=== PATIENT | female | born 1950 | race Caucasian/White ===

== ENCOUNTER 2021-04-16 19:24 | Inpatient (IN) | payer OTHER ==
[~2021-04-16] VITALS: Ht 167.6 cm; Wt 85.7 kg
[~2021-04-16 19:24] MED LIST: ASCO250T13 PO; METO25TA5 PO; MULTTAB99 PO; SIMV10TA84 PO; TEMA15CA2 PO
[2021-04-16 20:30] LABS: Basophils # (auto) 0 10 ^3/uL (0-0.2); Basophils % (auto) 0.6 % (0.0-2.0); Eosinophils # (auto) 0.3 10 ^3/uL (0-0.8); Lymphocytes # (auto) 1.3 10 ^3/uL (0.4-5.4)
[2021-04-16 20:32] LABS: Eosinophils % (auto) 5.8 % (0.0-7.0); Hematocrit 36.6 % (36.0-46.0); Hemoglobin 12.5 g/dL (12.2-16.2); Lymphocytes % (auto) 22.1 % (10.0-50.0); Mean Corpuscular Hemoglobin 35.4 pg (28.0-32.0); Mean Corpuscular Volume 104.1 fL (80.0-100.0); Monocytes # (auto) 0.6 10 ^3/uL (0-1.3); Monocytes % (auto) 9.3 % (0.0-12.0); Neutrophils # (auto) 3.7 10 ^3/uL (1.6-8.6); Neutrophils % (auto) 62.2 % (37.0-80.0); Nucleated Red Blood Cells % 0.2 %; Red Blood Cells 3.51 10^6/uL (4.0-5.20); Red Cell Distribution Width 13.8 % (11.8-14.3); White Blood Cell 5.9 10^3/uL (4.4-10.8)
[2021-04-16 20:47] LABS: Albumin 2.3 g/dL (3.4-5.0); BUN/Creatinine Ratio 13.2; Calcium 7.9 mg/dL (8.5-10.1); Magnesium 2.3 mg/dL (1.6-2.6); Potassium 4.8 mmol/L (3.5-5.1)
[2021-04-16 21:00] LABS: Bilirubin, Total 0.4 mg/dL (0.2-1.0); Total Protein 5.2 g/dL (6.4-8.2)
[2021-04-16 21:11] LABS: INR 1.07 (0.9-1.15); Partial Thromboplastin Time 30.8 sec (23.6-33.0)
[2021-04-16] MEDS ORDERED: MORPHINE SULFATE INJECTION 2 MG/ML SYRG IV ONE (22:45)
[2021-04-16] MEDS ORDERED: ONDANSETRON HCL 4 MG/2 ML VIAL IV ONE (22:45)
[2021-04-16] MEDS ORDERED: SODIUM CHLORIDE 0.9% 1,000 ML IV ONE (23:45)
[2021-04-16 23:54] LABS: Urine Bacteria FEW /hpf (None Seen); Urine Blood 3+ /uL (Negative); Urine Hyaline Cast FEW /lpf (0 - 2); Urine Mucus FEW (None Seen); Urine Specific Gravity 1.005 (1.001-1.035); Urine WBC 2 /hpf (0 - 5)
[2021-04-17] MEDS ORDERED: fentaNYL CITRATE 100 MCG/2 ML VL IV ONE (00:45)
[2021-04-17] MEDS ORDERED: ACETAMINOPHEN 325 MG TAB PO PRN (01:00)
[2021-04-17] MEDS ORDERED: NITROGLYCERIN 0.4 MG SL TAB SL PRN (01:00)
[2021-04-17] MEDS ORDERED: MORPHINE SULFATE INJECTION 2 MG/ML SYRG IV PRN (01:00)
[2021-04-17] MEDS ORDERED: cloNIDine HCL 0.1 MG TAB PO PRN (01:00)
[2021-04-17 01:48] VITALS: BP 136/79
[2021-04-17] MEDS: D5W/SOD CHLO 0.9% 1,000 ML IV SCH ×2 (03:10→14:48)
[2021-04-17] MEDS: cefTRIAXone 1GM/50ML D5W 50 ML IV SCH (04:29)
[2021-04-17 05:00] VITALS: BP 110/78
[2021-04-17] MEDS: HYDROmorphone HCL 2 MG/ML VL IV PRN ×6 (05:03→23:41)
[2021-04-17] MEDS ORDERED: ALBU108A5 INH (06:27)
[2021-04-17] MEDS ORDERED: HYDR-4798 PO (06:27)
[2021-04-17] MEDS: HYDROcodone-ACET 5/325MG TAB PO PRN ×2 (07:34→11:51)
[2021-04-17 09:00] VITALS: BP 113/54
[2021-04-17 09:48] LABS: Eosinophils # (auto) 0.1 10 ^3/uL (0-0.8); Hematocrit 32.4 % (36.0-46.0); Mean Corpuscular Hgb Conc. 34.8 g/dL (32.0-36.0); Monocytes # (auto) 0.5 10 ^3/uL (0-1.3); Nucleated Red Blood Cells % 0.2 %; Red Cell Distribution Width 13.3 % (11.8-14.3); White Blood Cell 6.1 10^3/uL (4.4-10.8)
[2021-04-17 09:49] LABS: Basophils # (auto) 0.1 10 ^3/uL (0-0.2); Basophils % (auto) 1.2 % (0.0-2.0); Eosinophils % (auto) 1.4 % (0.0-7.0); Hemoglobin 11.3 g/dL (12.2-16.2); Lymphocytes # (auto) 0.7 10 ^3/uL (0.4-5.4); Lymphocytes % (auto) 11.6 % (10.0-50.0); Mean Corpuscular Volume 103.5 fL (80.0-100.0); Monocytes % (auto) 8.6 % (0.0-12.0); Neutrophils # (auto) 4.7 10 ^3/uL (1.6-8.6); Neutrophils % (auto) 77.2 % (37.0-80.0); Red Blood Cells 3.13 10^6/uL (4.0-5.20)
[2021-04-17 09:59] LABS: Calcium 7.6 mg/dL (8.5-10.1); Potassium 4.2 mmol/L (3.5-5.1)
[2021-04-17] MEDS ORDERED: FAMOTIDINE (10MG/ML) 2ML VL IV SCH (10:00)
[2021-04-17] MEDS ORDERED: ENOXAPARIN SOD 40 MG/0.4 ML SYRINGE SC SCH (10:00)
[2021-04-17] MEDS ORDERED: METOPROLOL TARTRATE 25 MG TAB PO SCH (10:00)
[2021-04-17 10:05] LABS: BUN/Creatinine Ratio 14.6; Bilirubin, Total 0.5 mg/dL (0.2-1.0); Total Protein 4.5 g/dL (6.4-8.2)
[2021-04-17 13:00] VITALS: BP 135/80
[2021-04-17 17:00] VITALS: BP 132/86
[2021-04-17] MEDS: HYDROcodone-ACET 10/325MG TAB PO PRN ×2 (17:25→22:26)
[2021-04-17 22:00] VITALS: BP 151/86
[2021-04-17] MEDS ORDERED: ALBUTEROL SULF HFA 90MCG INH 200DOSE IN SCH (22:00)
[2021-04-17] MEDS: methylPREDNISolone SOD SUCC 40 MG/ML VL IV SCH (22:23)
[2021-04-17] MEDS: CELECOXIB 100 MG CAP PO SCH (22:24)
[2021-04-17] MEDS: MULTIPLE VITAMIN TAB PO SCH (22:24)
[2021-04-17] MEDS: ONDANSETRON HCL 4 MG/2 ML VIAL IV PRN (22:25)
[2021-04-18 05:00] VITALS: BP 137/78
[2021-04-18] MEDS: methylPREDNISolone SOD SUCC 40 MG/ML VL IV SCH (05:11)
[2021-04-18] MEDS: HYDROmorphone HCL 2 MG/ML VL IV PRN ×4 (05:13→20:35)
[2021-04-18 08:31] LABS: Basophils # (auto) 0 10 ^3/uL (0-0.2); Basophils % (auto) 0.2 % (0.0-2.0); Eosinophils # (auto) 0 10 ^3/uL (0-0.8); Hemoglobin 11.6 g/dL (12.2-16.2); Lymphocytes # (auto) 0.3 10 ^3/uL (0.4-5.4); Lymphocytes % (auto) 5.4 % (10.0-50.0); Mean Corpuscular Hgb Conc. 34.3 g/dL (32.0-36.0); Mean Corpuscular Volume 105.1 fL (80.0-100.0); Monocytes # (auto) 0.1 10 ^3/uL (0-1.3); Monocytes % (auto) 1.8 % (0.0-12.0); Neutrophils # (auto) 4.6 10 ^3/uL (1.6-8.6); Neutrophils % (auto) 92.6 % (37.0-80.0); Red Blood Cells 3.23 10^6/uL (4.0-5.20); Red Cell Distribution Width 13.6 % (11.8-14.3)
[2021-04-18 08:42] LABS: Calcium 7.9 mg/dL (8.5-10.1); Potassium 4.5 mmol/L (3.5-5.1)
[2021-04-18 08:49] LABS: BUN/Creatinine Ratio 10.3; Bilirubin, Total 0.4 mg/dL (0.2-1.0); Total Protein 4.9 g/dL (6.4-8.2)
[2021-04-18 09:00] VITALS: BP 139/79
[2021-04-18] MEDS: cefTRIAXone 1GM/50ML D5W 50 ML IV SCH (09:06)
[2021-04-18] MEDS ORDERED: LISI-716 PO (10:16)
[2021-04-18] MEDS ORDERED: BUPR-60 PO (10:16)
[2021-04-18] MEDS ORDERED: buPROPion HCL 75 MG TAB PO SCH (10:30)
[2021-04-18] MEDS: MULTIPLE VITAMIN TAB PO SCH ×2 (10:56→21:59)
[2021-04-18] MEDS: levoFLOXacin 500 MG TAB PO SCH (10:56)
[2021-04-18] MEDS: METOPROLOL TARTRATE 25 MG TAB PO SCH (10:57)
[2021-04-18] MEDS: CELECOXIB 100 MG CAP PO SCH ×2 (10:57→21:59)
[2021-04-18] MEDS: HYDROcodone-ACET 10/325MG TAB PO PRN (11:09)
[2021-04-18] MEDS: CALCITONIN 200 UNIT/SPRAY NASAL SCH (11:57)
[2021-04-18 13:00] VITALS: BP 180/75
[2021-04-18] MEDS ORDERED: CARISOPRODOL 350 MG TAB PO ONE (15:00)
[2021-04-18] MEDS ORDERED: ALBUTEROL SULF 2.5 MG/0.5ML(0.5%) NEB SOLN NEB PRN (15:00)
[2021-04-18] MEDS: PANTOPRAZOLE 40 MG TAB PO SCH (15:16)
[2021-04-18 17:00] VITALS: BP 108/71
[2021-04-18] MEDS: DOCUSATE SOD 100 MG CAP PO PRN (18:04)
[2021-04-18 21:00] VITALS: BP 105/59
[2021-04-18] MEDS: buPROPion HCL 75 MG TAB PO SCH (21:59)
[2021-04-18] MEDS: CARISOPRODOL 350 MG TAB PO SCH (22:00)
[2021-04-19] MEDS: HYDROmorphone HCL 2 MG/ML VL IV PRN ×6 (00:24→22:12)
[2021-04-19] MEDS: HYDROcodone-ACET 10/325MG TAB PO PRN (02:44)
[2021-04-19 03:25] VITALS: BP 102/64
[2021-04-19 04:55] VITALS: BP 108/64
[2021-04-19 09:00] VITALS: BP 101/57
[2021-04-19] MEDS: CELECOXIB 100 MG CAP PO SCH ×2 (09:19→21:54)
[2021-04-19] MEDS: levoFLOXacin 500 MG TAB PO SCH (09:20)
[2021-04-19] MEDS: METOPROLOL TARTRATE 25 MG TAB PO SCH (09:21)
[2021-04-19] MEDS: MULTIPLE VITAMIN TAB PO SCH ×2 (09:22→21:54)
[2021-04-19] MEDS: PANTOPRAZOLE 40 MG TAB PO SCH (09:22)
[2021-04-19] MEDS: CARISOPRODOL 350 MG TAB PO SCH ×2 (09:23→21:54)
[2021-04-19] MEDS: ASCORBIC ACID 500 MG TAB PO SCH (09:23)
[2021-04-19] MEDS: CALCITONIN 200 UNIT/SPRAY NASAL SCH (09:24)
[2021-04-19] MEDS: buPROPion HCL 75 MG TAB PO SCH ×2 (11:15→21:54)
[2021-04-19 13:00] VITALS: BP 122/77
[2021-04-19] MEDS: DOCUSATE SOD 100 MG CAP PO PRN (14:38)
[2021-04-19 17:00] VITALS: BP 131/84
[2021-04-19 22:00] VITALS: BP 132/86
[2021-04-19] MEDS: ONDANSETRON HCL 4 MG/2 ML VIAL IV PRN (22:12)
[2021-04-20] MEDS: ONDANSETRON HCL 4 MG/2 ML VIAL IV PRN (02:41)
[2021-04-20] MEDS: HYDROmorphone HCL 2 MG/ML VL IV PRN ×3 (02:45→17:50)
[2021-04-20 05:00] VITALS: BP 125/68
[2021-04-20 09:00] VITALS: BP 100/71
[2021-04-20] MEDS: METOPROLOL TARTRATE 25 MG TAB PO SCH (09:42)
[2021-04-20] MEDS: CELECOXIB 100 MG CAP PO SCH (09:42)
[2021-04-20] MEDS: levoFLOXacin 500 MG TAB PO SCH (09:42)
[2021-04-20] MEDS: CALCITONIN 200 UNIT/SPRAY NASAL SCH (09:42)
[2021-04-20] MEDS: ASCORBIC ACID 500 MG TAB PO SCH (09:43)
[2021-04-20] MEDS: CARISOPRODOL 350 MG TAB PO SCH (09:43)
[2021-04-20] MEDS: PANTOPRAZOLE 40 MG TAB PO SCH (09:43)
[2021-04-20] MEDS: MULTIPLE VITAMIN TAB PO SCH (09:43)
[2021-04-20] MEDS: buPROPion HCL 75 MG TAB PO SCH (10:50)
[2021-04-20 13:00] VITALS: BP 129/76
[2021-04-20] MEDS: HYDROcodone-ACET 10/325MG TAB PO PRN (14:36)
[2021-04-20 14:45] VITALS: BP 129/76
[2021-04-20 17:00] VITALS: BP 137/91
[2021-04-20 17:50] VITALS: BP 126/72
== END 2021-04-20 18:15 | DRG 552 ==
LOC: EDBD 19:24 → ER 19:27 → TELE 04-17 01:08 → TELE-CENTR 04-17 01:48
PROVIDERS: ADMIT Nurse Practitioner Family; ATTEND Internal Medicine
DX: S32.10XA Unspecified fracture of sacrum, initial encounter for closed fracture (principal); S32.511A Fracture of superior rim of right pubis, initial encounter for closed fracture; E87.1 Hypo-osmolality and hyponatremia; N39.0 Urinary tract infection, site not specified; E44.1 Mild protein-calorie malnutrition; S32.591A Other specified fracture of right pubis, initial encounter for closed fracture; W06.XXXA Fall from bed, initial encounter; S73.101A Unspecified sprain of right hip, initial encounter; I10 Essential (primary) hypertension; E66.9 Obesity, unspecified; E78.5 Hyperlipidemia, unspecified; W01.0XXA Fall on same level from slipping, tripping and stumbling without subsequent striking against object, initial encounter; F32.A Depression, unspecified; M85.88 Other specified disorders of bone density and structure, other site; S09.90XA Unspecified injury of head, initial encounter; I25.10 Atherosclerotic heart disease of native coronary artery without angina pectoris; Y93.89 Activity, other specified; Z91.040 Latex allergy status; Z68.30 Body mass index [BMI] 30.0-30.9, adult; Z95.1 Presence of aortocoronary bypass graft; Y92.098 Other place in other non-institutional residence as the place of occurrence of the external cause; Y99.8 Other external cause status; Z75.1 Person awaiting admission to adequate facility elsewhere
CPT/HCPCS: 36415; 70450; 71045; 72192; 80053; 80061; 81001; 83735; 84484; 85025; 85610; 85730; 87081; 87086; 87426; 93005; 94640; 96361; 96374; 96375; 97110; G0378; J0696; J2405; J3490; J7042